=== PATIENT | female | born 1965 ===

== ENCOUNTER 2022-02-26 06:15 | Day surgery (SDC) | payer OTHER ==
[~2022-02-26 06:15] MED LIST: LOSARTAN-HCTZ1 EACH PO
== END 2022-02-26 17:30 | disposition home or self-care (01) ==
LOC: CIR.AMB 06:15
PROVIDERS: ATTEND Otolaryngology Otology & Neurotology
DX: H66.92 Otitis media, unspecified, left ear (principal); H72.92 Unspecified perforation of tympanic membrane, left ear; Z20.822 Contact with and (suspected) exposure to COVID-19; I10 Essential (primary) hypertension

== ENCOUNTER 2024-01-28 06:35 | Day surgery (SDC) | payer OTHER ==
[2024-01-28] MEDS ORDERED: MIDAZOLAM HCL 2 MG/2 ML VIAL IV ONE (11:15)
[2024-01-28] MEDS ORDERED: DIPHENHYDRAMINE HCL 50 MG/ML VIAL 1ML IV ONE (11:15)
[2024-01-28] MEDS ORDERED: fentaNYL CITRATE 50 MCG/ML AMPUL IV ONE (11:15)
== END 2024-01-28 12:40 | disposition home or self-care (01) ==
LOC: AMB-ENDOS 06:35 → CIR.AMB 13:45
PROVIDERS: ATTEND Surgery
DX: K29.60 Other gastritis without bleeding (principal); K52.89 Other specified noninfective gastroenteritis and colitis; K59.00 Constipation, unspecified